=== PATIENT | male | born 1975 | race Caucasian/White ===

== ENCOUNTER 2019-07-24 01:09 | Day surgery (SDC) | payer OTHER, SELFPAY ==
[2019-07-20 13:20] VITALS: BMI 28.0
--- NOTE | 2019-07-24 10:29 | WPDANESEPPF ---
Anes - Initial Pre Proc Eval Procedure: Operation Date: 07/24/19 11:30 Proposed Procedures p Esophagogastroduodenoscopy & Colonoscopy - Santosh Hilton MD Date/Time: 07/24/19 10:29 Surgeon: Santosh Hilton MD Pre Op Diagnosis: abdominal pain Patient Data Age: 44 Gender: M Height: 6 ft 3 in Weight: 102 kg Allergies Allergy/AdvReac Type Severity Reaction Status Date / Time No Known Allergies Allergy Verified 07/24/19 10:33 Home Medications Medication Instructions Recorded Confirmed Type losartan 100 mg PO DAILY 07/20/19 07/24/19 History Patient hx anesthesia problems: none Family hx anesthesia problems: none PMFSH Past Medical History Medical History (Updated 07/24/19 @ 10:30 by Renato Pulliam MD) Bowel habit changes Hypertension NSAID long-term use Social History Social History Years smoked: 15 Smoking status: Former smoker Alcohol intake: current Drinks per week: 4 Anes - Eval Final PreProcedure Day of Procedure 07/24/19 10:29 Patient weight: normal Heart: regular rate and rhythm Lungs: clear to auscultation Airway: Mallampati scale class II Neurological: alert and oriented Last oral intake: >/= 8 hours ASA classification: II Emergent: no Anesthetic plan: proceed Anesthesia type and monitoring: general GIVS and standard monitoring Informed Consent: The patient's anesthetic plan and its attendant risks and benefits were discussed with the patient/family/POA. Questions were solicited and answers provided to the satisfaction of the patient/family/POA.
[2019-07-24 10:35] VITALS: BP 130/98; PULSE 98; RESP 16; TEMP 37; O2SAT 99
[2019-07-24] MEDS: LACTATED RINGERS 1,000 ML 150 ML IV CONT (10:39)
--- NOTE | 2019-07-24 11:33 | WPDHPUPDATE1 ---
History and Physical Update Update Date/Time: 07/24/19 11:33 History and Physical has been reviewed, including an updated exam of the patient. There are NO changes in the patient's condition. Risks, benefits, and alternatives have been discussed and questions answered. Patient agrees to proceed with procedure.
[2019-07-24 12:10] VITALS: BP 126/93; PULSE 90; RESP 16; O2SAT 96
[2019-07-24 12:20] VITALS: BP 133/95; PULSE 82; RESP 16; O2SAT 97
[2019-07-24 12:30] VITALS: BP 123/89; PULSE 79; RESP 16; O2SAT 100
== END 2019-07-24 12:50 | disposition home or self-care (01) ==
PROVIDERS: PCP Internal Medicine; Visit Provider Internal Medicine Gastroenterology
PROC: 0DJ08ZZ Inspection of Upper Intestinal Tract, Via Natural or Artificial Opening Endoscopic (ICD-10-PCS; CPT 43235; principal; 2019-07-24 11:30)
DX: R10.84 Generalized abdominal pain (principal); R19.4 Change in bowel habit; K63.89 Other specified diseases of intestine; I10 Essential (primary) hypertension; Z79.1 Long term (current) use of non-steroidal anti-inflammatories (NSAID); Z87.891 Personal history of nicotine dependence
CPT/HCPCS: 45380; 43239; 88305; J2704; J7120